=== PATIENT | male | born 1980 | race Caucasian/White ===

== ENCOUNTER 2018-06-25 18:25 | Emergency (ER) | payer OTHER ==
[~2018-06-25] VITALS: Ht 170.2 cm; Wt 72.7 kg
[2018-06-25 18:30] VITALS: Ht 170.2 cm; Wt 72.7 kg
[2018-06-25] MEDS ORDERED: SOD CHLORIDE 0.9% 1,000 ML IV STA (18:32)
--- NOTE | 2018-06-25 18:55 | ERD ---
ER Documentation Chief Complaint Chief Complaint HPI 37-year-old man brought in by EMS for methamphetamine abuse, agitation, botherin g guests at an [employer] rental. Symptoms began after using methamphetamine, he denies suicidal or homicidal ideation, no recent fevers or chills, no vomiting or diarrhea. HPI was limited as patient is intoxicated but it was supplemented by speaking to EMS, and nurses ROS All systems reviewed and are negative except as per history of present illness. Medications Home Meds Unable to Obtain Active Prescriptions or Reported Meds Allergies Allergies: Coded Allergies: Unknown: Unable to obtain (Unverified , 06/25/18) FmHx Family History: No diabetes Physical Exam Vitals Vital Signs Date Temp Pulse Resp B/P (MAP) Pulse Ox O2 O2 Flow FiO2 Time Delivery Rate 06/25/18 98 14 103/76 94 Room Air 18:50 (85) 06/25/18 98.2 96 18 109/76 98 18:30 (87) Physical Exam GENERAL: Well-developed, well-nourished, appears intoxicated, agitated, afebrile HEENT: Moist mucous membranes, pink conjunctiva, no cervical spine tenderness or step-off deformities, no goiter, no jaundice or icterus, extraocular movements i ntact without pain. No submandibular induration, and no pharyngeal erythema NEURO: Responsive to verbal stimuli, unable to follow direction, pupils equal round reactive to light, moving all extremities, no focal deficits or facial asymmetry, pupils equal round reactive to light CARDIAC: Tachycardic and regular, no murmurs rubs or gallops LUNGS: Clear bilaterally no wheezing crackles or stridor ABDOMEN: Soft nontender, no guarding, no rigidity, no rebound, no psoas sign no obturator sign. Normoactive bowel sounds SKIN: Warm and dry to touch, no abrasions, contusions, or hematomas, no lacerations, no ecchymosis, no target lesions, and without ulcers EXTREMITIES: No clubbing cyanosis or edema, calves are bilaterally symmetrical, no Homans sign, no popliteal cord sign. Distal pulses equal and bilateral PSYCH: Agitated, bizarre affect Result Diagram: 06/25/18185406/25/181854 Results 24 hrs Laboratory Tests Test 06/25/18 18:55 White Blood Count 5.0 10^3/ul Red Blood Count 3.76 10^6/ul Hemoglobin 11.6 g/dl Hematocrit 34.4 % Mean Corpuscular Volume 91.5 fl Mean Corpuscular Hemoglobin 30.9 pg Mean Corpuscular Hemoglobin Concent 33.7 g/dl Red Cell Distribution Width 12.9 % Platelet Count 318 10^3/UL Mean Platelet Volume 7.9 fl Immature Granulocytes % 0.200 % Neutrophils % 44.7 % Lymphocytes % 42.3 % Monocytes % 7.8 % Eosinophils % 3.6 % Basophils % 1.4 % Nucleated Red Blood Cells % 0.0 /100WBC Immature Granulocytes # 0.010 10^3/ul Neutrophils # 2.2 10^3/ul Lymphocytes # 2.1 10^3/ul Monocytes # 0.4 10^3/ul Eosinophils # 0.2 10^3/ul Basophils # 0.1 10^3/ul Nucleated Red Blood Cells # 0.0 10^3/ul Sodium Level 142 mmol/L Potassium Level 3.4 mmol/L Chloride Level 107 mmol/L Carbon Dioxide Level 27 mmol/L Anion Gap 8 Blood Urea Nitrogen 20 mg/dl Creatinine 0.85 mg/dl Est Glomerular Filtrat Rate mL/min > 60 mL/min Glucose Level 102 mg/dl Calcium Level 8.8 mg/dl Total Bilirubin 1.3 mg/dl Direct Bilirubin 0.00 mg/dl Indirect Bilirubin 1.3 mg/dl Aspartate Amino Transf (AST/SGOT) 21 IU/L Alanine Aminotransferase (ALT/SGPT) 31 IU/L Alkaline Phosphatase 86 IU/L Total Protein 7.0 g/dl Albumin 4.1 g/dl Globulin 2.90 g/dl Albumin/Globulin Ratio 1.41 Salicylates Level < 1.0 mg/dl Acetaminophen Level < 10.0 ug/ml Ethyl Alcohol Level < 10.0 mg/dl Current Medications Medications Dose Sig/Edu Start Time Status Last (Trade) Ordered Route PRN Stop Time Admin Dose Reason Admin Sodium 1,000 ml @ Q1H STAT 06/25/18 DC 06/25/18 Chloride 1,000 mls/hr IV 18:32 19:01 06/25/18 19:31 Haloperidol 5 mg ONCE ONCE 06/25/18 DC 06/25/18 (Haldol) IV 19:00 19:01 06/25/18 19:01 Procedures/MDM IV line was established patient was placed on rn cardiac rehab rhythm strip revealed a sinus tachycardia at 110 bpm with upright P and T waves. Patient was afebrile EKG performed, read by me revealed a sinus tachycardia at 100 bpm, normal axis, narrow QRS complex, no concerning ST elevations or depressions noted, QT interval within normal limits. Patient was already treated with diazepam IM administered by EMS, I administered 1 L normal saline IV and haloperidol 5 mg IV x1 CBC and electrolytes were normal, liver function tests normal, aspirin Tylenol levels negative, ethanol level negative Observation Note: Time: 6 hours Family Hx: No Hypertension Evaluation: Multiple exams showed improving symptoms and no evidence of wo rsening mental status CT scan of the brain was negative for acute bleed mass or shift. Patient's vital signs remained normal, mental status improved, he has no suicidal homicidal ideation at this time and he will be discharged. Differential diagnoses considered, included but not limited to acute coronary syndrome, pulmonary embolism, aortic dissection, abdominal aortic aneurysm, sepsis, stroke, meningitis, encephalitis, pneumonia, appendicitis, cholecystitis, bowel obstruction, pyelonephritis, nephrolithiasis, cystitis, as well as metabolic, hematologic, and electrolyte abnormalities. As well as abscess, cellulitis, fractures, and dislocations. Patient feels much better at this time, and vital signs are normal, symptoms have improved. I did give strict instructions to return to the ED if symptoms continue or worsen, patient will otherwise follow-up with primary care physician. Patient understood instructions and agreed to plan. Disclaimer: Inadvertent spelling and grammatical errors are likely due to EHR/dictation software use and do not reflect on the overall quality of patient care. Also, please note that the electronic time recorded on this note does not necessarily reflect the actual time of the patient encounter. Departure Diagnosis: Primary Impression: Drug abuse Additional Impression: Methamphetamine abuse Condition: DAYDAY Collins MD Jun 25, 2018 18:55
[2018-06-25] MEDS ORDERED: HALOPERIDOL 5 MG INJ IV ONE (19:00)
[2018-06-26 05:00] VITALS: BP 95/66; PULSE 66; RESP 18
== END 2018-06-26 05:15 | disposition home or self-care (01) ==
LOC: E/R 18:25
DX: F15.10 Other stimulant abuse, uncomplicated (principal); R40.2142 Coma scale, eyes open, spontaneous, at arrival to emergency department; R40.2342 Coma scale, best motor response, flexion withdrawal, at arrival to emergency department; R40.2242 Coma scale, best verbal response, confused conversation, at arrival to emergency department
CPT/HCPCS: 70450; 80053; 80307; 85025; J1630; J7030; 36415; 93005; 96374